=== PATIENT | female | born 2000 | race Two or more races ===

== ENCOUNTER 2022-06-02 01:04 | Outpatient (CLI) | payer OTHER ==
[2022-06-02] MEDS ORDERED: PRENATAL TABLE1 EAC1 PO (02:12)
== END 2022-06-02 10:29 | disposition home or self-care (01) ==
LOC: OBS/DEL 01:04
PROVIDERS: ATTEND Obstetrics & Gynecology
DX: O26.893 Other specified pregnancy related conditions, third trimester (principal); O16.3 Unspecified maternal hypertension, third trimester; O62.8 Other abnormalities of forces of labor; Z3A.37 37 weeks gestation of pregnancy

== ENCOUNTER 2024-06-29 09:32 | Outpatient (CLI) | payer OTHER ==
[~2024-06-29 09:32] MED LIST: PRENATAL TABLE1 EAC1 PO
[2024-06-29 09:41] VITALS: BP 126/77
[2024-06-29 12:38] VITALS: BP 109/68; O2SAT 96
[2024-06-29 15:10] VITALS: BP 102/62
== END 2024-06-29 14:17 | disposition home or self-care (01) ==
LOC: OBS/DEL 09:32
PROVIDERS: ATTEND Obstetrics & Gynecology
DX: O26.893 Other specified pregnancy related conditions, third trimester (principal); O26.849 Uterine size-date discrepancy, unspecified trimester; O36.8199 Decreased fetal movements, unspecified trimester, other fetus; Z3A.37 37 weeks gestation of pregnancy

== ENCOUNTER 2024-07-03 13:59 | Inpatient (IN) | payer OTHER ==
[~2024-07-03] VITALS: Ht 154.9 cm; Wt 61.2 kg
[2024-07-03 13:22] VITALS: BP 105/80
[2024-07-03] MEDS ORDERED: RINGERS SOLUTION,LACTATED 1,000 ML IV SCH (14:15)
[2024-07-03 14:27] LABS: HEMATOCRIT 37.5 % (36.0-45.00); HEMOGLOBIN 12.6 g/dL (12.0-15.00); MEAN CELL VOLUME 91.9 fL (80.00-100.00); MEAN CORPUSCULAR HGB CONC 33.7 g/dl (32.0-36.0); PLATELET COUNT 304 K/uL (150-450); RED BLOOD COUNT 4.08 M/uL (4.00-6.00)
[2024-07-03 14:53] LABS: INR < 0.93; PARTIAL THROMBOPLASTIN TIME 25.4 SECONDS (22.0-34.0); PROTHROMBIN TIME 9.8 SECONDS (9.0-11.5)
[2024-07-03 15:21] LABS: ALBUMIN 2.7 gm/dL (3.4-5.0); BILIRUBIN TOTAL 0.28 mg/dL (0.3-1.2); CALCIUM 8.6 mg/dL (8.5-10.1); CREATININE SERUM 0.52 mg/dL (0.55-1.02); GFR 146.13; GLOBULINA 3.7 G/DL (2.4-3.5); POTASSIUM 3.24 mEq/L (3.5-5.1); TOTAL PROTEIN 6.4 gm/dL (6.4-8.2)
[2024-07-03 16:00] VITALS: BP 101/75
[2024-07-03 17:42] VITALS: BP 120/67
[2024-07-03] MEDS ORDERED: ACETAMINOPHEN 325 MG TABLET PO PRN (17:45)
[2024-07-03] MEDS ORDERED: ERYTHROMYCIN BASE OPHT 1GM EACH TUBE OP ONE (17:45)
[2024-07-03] MEDS ORDERED: OxyCODONE HCL/APAP UD (PERCOCET) PO PRN (17:45)
[2024-07-03] MEDS ORDERED: CHLORHEXIDINE GLUCONATE 120 ML BOTTLE TOP ONE (17:45)
[2024-07-03] MEDS ORDERED: OXYTOCIN 20 UNITS/1000ML RL PIGGYBAG IV ONE (17:45)
[2024-07-04 00:43] VITALS: BP 113/67
[2024-07-04 04:13] LABS: MEAN CELL VOLUME 89.5 fL (80.00-100.00); MEAN CORPUSCULAR HEMOGLOBIN 31.5 pg (27.00-32.0); MEAN CORPUSCULAR HGB CONC 35.2 g/dl (32.0-36.0); PLATELET COUNT 322 K/uL (150-450); RED CELL DISTRIBUTION WIDTH 15.3 % (11.5-14.5)
[2024-07-04 08:00] VITALS: BP 119/63
[2024-07-04] MEDS ORDERED: HYDROCORTISONE 2.5% 30 GM TUBE RECTAL SCH (09:00)
[2024-07-04] MEDS ORDERED: BENZOCAINE/MENTHOL 90 ML BOTTLE TOP SCH (09:00)
[2024-07-04 16:00] VITALS: BP 125/72
[2024-07-05 00:17] VITALS: BP 105/72
[2024-07-05 08:00] VITALS: BP 109/65
[2024-07-05] MEDS ORDERED: ACETAMINOPHEN 500 MG GEL..CAP PO PRN (10:15)
== END 2024-07-05 13:20 | disposition home or self-care (01) | DRG 807 ==
LOC: LDR 13:59 → OB/GYN 13:59
PROVIDERS: Specialist; ADMIT Obstetrics & Gynecology; ATTEND Obstetrics & Gynecology
PROC: 10E0XZZ Delivery of Products of Conception, External Approach (ICD-10-PCS; principal; 2024-07-03)
PROC: 4A1HXCZ Monitoring of Products of Conception, Cardiac Rate, External Approach (ICD-10-PCS; 2024-07-03)
DX: O80 Encounter for full-term uncomplicated delivery (principal); Z37.0 Single live birth; Z3A.39 39 weeks gestation of pregnancy; Z20.822 Contact with and (suspected) exposure to COVID-19